=== PATIENT | female | born 1985 | race Two or more races ===

== ENCOUNTER → 2018-07-14 | Outpatient (REF) | payer BC ==
[2018-07-14 15:30] LABS: INFLUENZA A AMPLIFICATION NEGATIVE (NEGATIVE); INFLUENZA B AMPLIFICATION NEGATIVE (NEGATIVE)
== END ==
LOC: M LAB REF 14:43
PROVIDERS: ATTEND Physician Assistant
DX: J11.1 Influenza due to unidentified influenza virus with other respiratory manifestations (principal)

== ENCOUNTER → 2019-02-14 | Outpatient (REF) | payer BC | LOC: M LAB REF 17:11 | PROVIDERS: ATTEND Physician Assistant | DX: J02.9 Acute pharyngitis, unspecified (principal) ==

== ENCOUNTER → 2020-02-02 | Outpatient (REF) | payer BC | LOC: M LAB REF 21:36 | PROVIDERS: ATTEND Physician Assistant | DX: J02.9 Acute pharyngitis, unspecified (principal) ==